=== PATIENT | male | born 2000 | race Caucasian/White ===

== ENCOUNTER 2019-06-19 08:12 | Emergency (ER) | payer BC ==
[2019-06-19 08:18] VITALS: RESP 18; TEMP 98.8
--- NOTE | 2019-06-19 08:39 | ED ---
General Adult HPI - General Chief complaint: Skin/Abscess/Foreign Body Stated complaint: FB in foot Time Seen by Provider: 06/19/19 08:19 Source: patient Mode of arrival: ambulatory Limitations: no limitations - History of Present Illness Initial comments: Dictation was produced using [employer] dictation software. please excuse any gramma tical, word or spelling errors. Chief Complaint: 19-year-old male with foreign body sensation in the right foot. History of Present Illness: 19-year-old male who presents today with foreign body sensation in the right foot. Patient states his arrived home with his socks when he felt a sharp object onto the bottom of his foot. Patient believes that it was metal because his father was working on metal grinding. Patient's tetanus was updated 2-3 years ago. The ROS documented in this emergency department record has been reviewed and confirmed by me. Those systems with pertinent positive or negative responses have been documented in the HPI. All other systems are other negative and/or noncontributory. PHYSICAL EXAM: General Impression: Alert and oriented x3, not in acute distress HEENT: Normocephalic atraumatic, extra-ocular movements intact, pupils equal and reactive to light bilaterally, mucous membranes moist. Cardiovascular: Heart regular rate and rhythm, S1&S2 audible, no murmurs, rubs or gallops Chest: Lungs clear to auscultation bilaterally, no rhonchi, no wheeze, no rales Abdomen: Bowel sounds present, abdomen soft, non-tender, non-distended, no organomegaly Musculoskeletal: Pulses present and equal in all extremities, no peripheral edema Motor: no focal deficits noted Neurological: CN II-XII grossly intact, no focal motor or sensory deficits noted Skin: Intact with no visualized rashes Psych: Normal affect and mood Right foot: Small puncture wound to the right anterior plantar foot ED course: 19-year-old male presents with foreign body sensation in the right foot. He was walking around where his socks. As upon arrival are within acceptable limits. X-ray of the foot was obtained showing metallic foreign body measured approximately 2.5 cm. Multiple attempts were made to remove the foreign body with no success. Orthopedic surgery was consulted. Discussed patient case with Maria Fernanda Hannah was coupon manifest clerk for Dr. Bryan. She requests that patient given antibiotics and she will attempt to have foreign body removed.Foreign body was removed by Maria Fernanda Hannah, ancillary staff member for orthopedic surgery. X-ray shows removal foreign body. He is referred to her procedure note for more detailed description of procedure. Orthopedic surgery recommendation was to provide patient with outpatient prescription for Keflex. He does have a follow- up appointment with Kendall abraham upon discharge. - Related Data Home Medications Medication Instructions Recorded Confirmed Melatonin 5 mg PO HS 06/19/19 06/19/19 Previous Rx's Medication Instructions Recorded Cephalexin [Keflex] 500 mg PO Q6HR 5 Days #20 cap 06/19/19 Allergies Allergy/AdvReac Type Severity Reaction Status Date / Time No Known Allergies Allergy Verified 06/19/19 08:36 Review of Systems ROS Statement: Those systems with pertinent positive or pertinent negative responses have been documented in the HPI. ROS Other: All systems not noted in ROS Statement are negative. Past Medical History Past Medical History: No Reported History History of Any Multi-Drug Resistant Organisms: None Reported Past Surgical History: No Surgical Hx Reported Past Psychological History: No Psychological Hx Reported Smoking Status: Current some day smoker Past Alcohol Use History: None Reported General Exam Limitations: no limitations Course Vital Signs 06/19/19 06/19/19 06/19/19 08:14 10:00 11:13 Temperature 98.8 F Pulse Rate 87 80 72 Respiratory 18 18 18 Rate Blood Pressure 145/98 120/78 121/70 O2 Sat by Pulse 100 100 100 Oximetry 06/19/19 12:35 Temperature Pulse Rate 72 Respiratory 18 Rate Blood Pressure 121/70 O2 Sat by Pulse 100 Oximetry Disposition Clinical Impression: Foreign body (FB) in soft tissue Disposition: HOME SELF-CARE Condition: Good Instructions (If sedation given, give patient instructions): Soft Tissue Foreign Body (ED) Prescriptions: Cephalexin [Keflex] 500 mg PO Q6HR 5 Days #20 cap Is patient prescribed a controlled substance at d/c from ED?: No Referrals: Shiv Story MD [STAFF PHYSICIAN] - 1-2 days Time of Disposition: 12:49
[2019-06-19] MEDS ORDERED: LIDOCAINE 1% INJ 10MG/ML (20 ML MDV) SQ ONE ×2 (08:49→10:21)
--- NOTE | 2019-06-19 08:57 | XR ---
EXAMINATION TYPE: XR foot complete RT DATE OF EXAM: 06/19/2019 CLINICAL HISTORY: Foreign body in right foot, injury with pain. TECHNIQUE: Frontal, lateral, and oblique images of the right foot are obtained. COMPARISON: None FINDINGS: There is no acute fracture/dislocation evident in the right foot. The joint spaces in the right foot appear within normal limits. There is linear 2.5 cm density or metallic foreign body maritza g the plantar surface distal metadiaphysis level of the first metatarsal. No bony penetration is iden tified. IMPRESSION: As above.
[2019-06-19 11:14] VITALS: BP 121/70; PULSE 72
[2019-06-19] MEDS ORDERED: ceFAZolin 1,000 MG in SODIUM CHLORIDE 0.9% IRRIGATIO 250 ML IRRIGATION ONE (12:45)
--- NOTE | 2019-06-19 12:47 | XR ---
EXAMINATION TYPE: XR foot limited RT DATE OF EXAM: 06/19/2019 CLINICAL HISTORY: Foreign body removal TECHNIQUE: Frontal, lateral images of the right foot are obtained. COMPARISON: None. FINDINGS: Linear radiopaque foreign body on the lateral projection obtained compared to the prior francisco dy has been removed. On the oblique view radiopaque foreign body appears to be present. Correlate cli nically. IMPRESSION: Apparent removal of linear radiopaque foreign body within the soft tissues of the right foot. ICD 10 NO FRACTURE, INITIAL EVALUATION
[2019-06-19] MEDS ORDERED: KETOROLAC 30 MG/ML 1 ML VIAL IVP STA (13:10)
--- NOTE | 2019-06-19 13:23 | P.CNOR ---
History of Present Illness - [facility] Consult date: 06/19/19 Consult reason: other (Metallic foreign body right foot.) History of present illness: This is a 19-year-old male who presented to the emergency department this morning after stepping on a hardwood floor nail in their feet and had immediate pain. He felt that the nail was inside of his foot. X-rays confirmed that he did have a retained 2 inch long metallic foreign body. Foreign body removal was attempted by the emergency department. We're called for orthopedic evaluation when they were unable to remove the object. Past Medical History Past Medical History: No Reported History History of Any Multi-Drug Resistant Organisms: None Reported Past Surgical History: No Surgical Hx Reported Past Psychological History: No Psychological Hx Reported Smoking Status: Current some day smoker Past Alcohol Use History: None Reported Medications and Allergies Home Medications Medication Instructions Recorded Confirmed Type Cephalexin [Keflex] 500 mg PO Q6HR 5 Days #20 cap 06/19/19 Rx Melatonin 5 mg PO HS 06/19/19 06/19/19 History Allergies Allergy/AdvReac Type Severity Reaction Status Date / Time No Known Allergies Allergy Verified 06/19/19 08:36 Physical Examination This is a pleasant 19-year-old male in no acute distress. He is alert and oriented 3. His mother is present at bedside. Exam of the right lower extremity reveals a 1-1/2 inch incision made by the emergency department about the medial aspect of the foot in the area of the first metatarsal head. There is mild pain with palpation about the foot in this area. He has full toe motion with mild pain. He has full foot and ankle motion without difficulty. Pedal pulse is +2/4. Neurovascular status to the lower extremity is intact. Procedure: The foot is prepped with ChloraPrep swabs. The area is anesthetized with 10 mL of 1% lidocaine. Portable x-ray was used to triangulate the end of the nail. After some exploration, I was able to feel the metallic foreign body with my hemostat. With some force I was able to extract the nail. The patient stated that he felt relief with removal of the foreign body. He continued to have full toe and ankle motion without difficulty and with minimal pain. The wound is irrigated with 250 mL of saline mixed with 250 mg of Kefzol. 1 4-0 nylon suture is placed in the middle of the incision and the wound is packed with quarter inch iodoform gauze. The wound is dressed with sterile gauze, Kerlix and Carrillo wrap. It is recommended that the patient remain on crutches until follow-up. He is given instructions on daily dressing change and iodoform packing changes. Mom stated that she is familiar with packing wounds and feels comfortable doing this on her own at home. He will go home with Keflex orally per the emergency department and pain medication. He is to follow-up in our office on Monday for reevaluation. He is to call the office or return to the ER if she develops increased swelling, redness or foul drainage or runs a fever. Results X-rays of the right foot reveal a thin metallic foreign body measuring about 28 mm in length about the medial aspect of the foot the area of the first metatarsal head. No bony abnormality noted. X-rays taken after removal foreign body show no evidence of retained foreign body. No bony abnormality. Assessment and Plan (1) Foreign body (FB) in soft tissue Current Visit: Yes Status: Acute Code(s): M79.5 - RESIDUAL FOREIGN BODY IN SOFT TISSUE SNOMED Code(s): 636600403 Plan: Procedure: The foot is prepped with ChloraPrep swabs. The area is anesthetized with 10 mL of 1% lidocaine. Portable x-ray was used to triangulate the end of the nail. After some exploration, I was able to feel the metallic foreign body with my hemostat. With some force I was able to extract the nail. The patient stated that he felt relief with removal of the foreign body. He continued to have full toe and ankle motion without difficulty and with minimal pain. The wound is irrigated with 250 mL of saline mixed with 250 mg of Kefzol. 1 4-0 nylon suture is placed in the middle of the incision and the wound is packed with quarter inch iodoform gauze. The wound is dressed with sterile gauze, Kerlix and Carrillo wrap. It is recommended that the patient remain on crutches until follow-up. He is given instructions on daily dressing change and iodoform packing changes. Mom s tated that she is familiar with packing wounds and feels comfortable doing this on her own at home. He will go home with Keflex orally per the emergency department and pain medication. He is to follow-up in our office on Monday for reevaluation. He is to call the office or return to the ER if she develops increased swelling, redness or foul drainage or runs a fever.
== END 2019-06-19 13:21 | disposition home or self-care (01) ==
LOC: EC 08:12
DX: S90.851A Superficial foreign body, right foot, initial encounter (principal); F17.200 Nicotine dependence, unspecified, uncomplicated; W45.8XXA Other foreign body or object entering through skin, initial encounter; Y93.01 Activity, walking, marching and hiking
CPT/HCPCS: 73620; 73630; 99284; 96365; 96375; 28190; J0690; J2001; J1885

== ENCOUNTER 2020-08-16 07:25 | Emergency (ER) | payer BC, OTHER ==
[2020-08-16 07:38] VITALS: BP 150/90; PULSE 87; RESP 18; TEMP 99
[2020-08-16] MEDS ORDERED: LIDOCAINE 1% INJ 10MG/ML (20 ML MDV) SQ ONE (08:14)
--- NOTE | 2020-08-16 09:02 | ED ---
General Adult HPI - General Chief complaint: Wound/Laceration Stated complaint: Hand Lac IHS Time Seen by Provider: 08/16/20 07:51 Source: patient, RN notes reviewed Mode of arrival: ambulatory Limitations: no limitations - History of Present Illness Initial comments: 20-year-old male presents to the emergency department for a chief complaint of finger laceration. Laceration is on the left second digit. Patient reports that he was cutting open a box at work when he accidentally cut his finger. Patient reports tetanus is up-to-date in the past 3-4 years. Patient denies any difficulty moving his finger. Denies any loss of sensation. Denies any other injuries.Patient has no other complaints at this time including shortness of breath, chest pain, abdominal pain, nausea or vomiting, headache, or visual changes. - Related Data Home Medications Medication Instructions Recorded Confirmed Melatonin 5 mg PO HS 06/19/19 06/19/19 Previous Rx's Medication Instructions Recorded Cephalexin [Keflex] 500 mg PO Q6HR 5 Days #20 cap 06/19/19 Allergies Allergy/AdvReac Type Severity Reaction Status Date / Time No Known Allergies Allergy Verified 08/16/20 07:38 Review of Systems ROS Statement: Those systems with pertinent positive or pertinent negative responses have been documented in the HPI. ROS Other: All systems not noted in ROS Statement are negative. Past Medical History Past Medical History: No Reported History History of Any Multi-Drug Resistant Organisms: None Reported Past Surgical History: No Surgical Hx Reported Additional Past Surgical History / Comment(s): hypospadius surgery as infant. Past Psychological History: No Psychological Hx Reported Smoking Status: Vaper Past Alcohol Use History: None Reported Past Drug Use History: Marijuana General Exam Limitations: no limitations General appearance: alert, in no apparent distress Head exam: Present: atraumatic, normocephalic, normal inspection Eye exam: Present: normal appearance, PERRL, EOMI. Absent: scleral icterus, conjunctival injection, periorbital swelling ENT exam: Present: normal exam, mucous membranes moist Neck exam: Present: normal inspection, full ROM. Absent: tenderness, meningismus, lymphadenopathy Respiratory exam: Present: normal lung sounds bilaterally. Absent: respiratory distress, wheezes, rales, rhonchi, stridor Cardiovascular Exam: Present: regular rate, normal rhythm, normal heart sounds. Absent: systolic murmur, diastolic murmur, rubs, gallop, clicks GI/Abdominal exam: Present: soft, normal bowel sounds. Absent: distended, tenderness, guarding, rebound, rigid Extremities exam: Present: full ROM (Full range of motion of the left second digit.), normal capillary refill (Capillary refill less than 2 seconds in the left second digit. The pulse 2+ in the left upper extremity.), other (Sensation intact left second digit. Patient does have a 2 cm laceration noted on the fact the left second digit middle phalanx. No evidence of foreign body. No evidence of) Course Vital Signs 08/16/20 07:33 Temperature 99 F Pulse Rate 87 Respiratory 18 Rate Blood Pressure 150/90 O2 Sat by Pulse 100 Oximetry Procedures - Laceration Laceration #1 Consent Obtained: verbal consent Indication: laceration Site: upper extremity Size (cm): 2 Description: linear Depth: simple, single layer Anesthetic Used: lidocaine 1% Anesthesia Technique: local infiltration Amount (mls): 2 Pre-repair: wound explored, irrigated extensively (with saline pressure irrigation and iodine), deep structures intact Type of Sutures: nylon Size of Sutures: 5-0 Number of Sutures: 3 Technique: simple, interrupted Patient Tolerated Procedure: well, no complications Medical Decision Making - Medical Decision Making Laceration of the left second digit. Not involving joint line. Full range of motion, no evidence of deep structure injury. No evidence for foreign body. Laceration was repaired. Tetanus updated. Discussed care in return parameters. Disposition Clinical Impression: Laceration Disposition: HOME SELF-CARE Condition: Good Instructions (If sedation given, give patient instructions): Care For Your Stitches (ED), Laceration (ED) Additional Instructions: Please keep wounds clean. Monitor for signs of infection such as spreading or streaking redness, drainage, or fever. Return if these occur. Otherwise return in 7-10 days for suture removal. Is patient prescribed a controlled substance at d/c from ED?: No Referrals: Chico Goel DO [Primary Care Provider] - 1-2 days Time of Disposition: 08:58
== END 2020-08-16 09:07 | disposition home or self-care (01) ==
LOC: EC 07:25
DX: S61.211A Laceration without foreign body of left index finger without damage to nail, initial encounter (principal); F17.290 Nicotine dependence, other tobacco product, uncomplicated; Z79.890 Hormone replacement therapy; W26.8XXA Contact with other sharp object(s), not elsewhere classified, initial encounter; Y92.69 Other specified industrial and construction area as the place of occurrence of the external cause; Y99.0 Civilian activity done for income or pay
CPT/HCPCS: 99282; 12001; J2001